=== PATIENT | male | born 1970 | race African-American/Black ===

== ENCOUNTER 2024-01-25 15:53 | Emergency (ER) | payer MEDICAID ==
[~2024-01-25] VITALS: Ht 180.3 cm; Wt 117.9 kg
[2024-01-25 18:44] VITALS: BP 155/90; PULSE 95; RESP 16; TEMP 99.1; O2SAT 96
[2024-01-25] MEDS: HYDROcodone-ACET 5/325MG TAB PO ONE (18:51)
[2024-01-25] MEDS: KETOROLAC TROMETH 60MG/2ML VIAL IM ONE (18:52)
== END 2024-01-25 20:18 | disposition home or self-care (01) ==
LOC: ER 15:53
DX: M76.61 Achilles tendinitis, right leg (principal); N44.2 Benign cyst of testis; Z88.0 Allergy status to penicillin
CPT/HCPCS: 73610; 76870; 96372; 99285; J1885

== ENCOUNTER → 2024-02-10 | Outpatient (CLI) | payer MEDICAID | END | disposition home or self-care (01) | LOC: XYW 08:16 | PROVIDERS: ATTEND Internal Medicine | DX: I51.89 Other ill-defined heart diseases (principal); R06.02 Shortness of breath; R06.00 Dyspnea, unspecified | CPT/HCPCS: 93306 ==